=== PATIENT | male | born 1960 | race African-American/Black ===

== ENCOUNTER 2018-02-27 15:57 | Emergency (ER) | payer SELFPAY ==
[~2018-02-27] VITALS: Ht 180.3 cm; Wt 86.0 kg
[2018-02-27 16:39] VITALS: BP 165/108
== END 2018-02-27 17:47 | disposition home or self-care (01) ==
LOC: ER 17:22
DX: N60.02 Solitary cyst of left breast (principal); I10 Essential (primary) hypertension
CPT/HCPCS: 93005; 99283